=== PATIENT | male | born 1950 | race Hispanic/Latino ===

== ENCOUNTER → 2022-01-24 | Outpatient (CLI) | payer MEDICARE ==
[~2022-01-24] MED LIST: IOPAMIDOL 370 MG/ML 200 ML INFUS..BTL INJ ONE; SODIUM CHLORIDE 0.9% 500ML 500 ML ONE; SODIUM CHLORIDE 0.9% 50ML 50 ML ONE
[2022-01-24 14:34] LABS: CREATININE, SERUM 1.36 mg/dL (0.72-1.25)
== END ==
LOC: CT 13:44
PROVIDERS: ATTEND Internal Medicine Gastroenterology
DX: Z12.11 Encounter for screening for malignant neoplasm of colon (principal); R63.0 Anorexia; R63.4 Abnormal weight loss; Z80.0 Family history of malignant neoplasm of digestive organs
CPT/HCPCS: 36415; 74177; 82565; 84520; 96360; J7040; Q9967

== ENCOUNTER 2022-02-01 16:35 | Inpatient (IN) | payer MEDICARE ==
[~2022-02-01] VITALS: Ht 170.2 cm; Wt 67.6 kg
[2022-02-01 17:26] LABS: BASOPHILS % 0.3 % (0.0-1.0); EOSINOPHILS # (AUTO) 0.2 (0.0-0.4); EOSINOPHILS % 2.3 % (0.0-6.0); HEMATOCRIT 32.6 % (38.2-49.6); HEMOGLOBIN 9.9 g/dL (14.0-18.0); LYMPHOCYTES # (AUTO) 0.7 (1.0-3.2); LYMPHOCYTES % 10.1 % (18.0-39.1); MEAN CORPUSCULAR HEMOGLOBIN 25.3 pg (28-32); MEAN CORPUSCULAR HGB CONC 30.4 g/dL (31-35); MEAN CORPUSCULAR VOLUME 83.4 fL (81-99); MONOCYTES # (AUTO) 0.5 (0.2-0.8); MONOCYTES % 7.5 % (4.4-11.3); NEUTROPHILS # (AUTO) 5.2 (2.1-6.9); NEUTROPHILS % 79.2 % (38.7-80.0); PLATELET COUNT 189 x10e3/uL (140-360); RED BLOOD COUNT 3.91 x10e6/uL (4.3-5.7)
[2022-02-01 17:42] LABS: ALBUMIN 3.2 g/dL (3.5-5.0); ALBUMIN/GLOBULIN RATIO 0.7 (0.8-2.0); ANION GAP 13.1 mmol/L (8-16); CALCIUM 9.1 mg/dL (8.4-10.2); CREATININE, SERUM 1.29 mg/dL (0.72-1.25); POTASSIUM 4.1 mmol/L (3.5-5.1)
[2022-02-01] MEDS ORDERED: SODIUM CHLORIDE 0.9% 250ML 250 ML ONE (18:23)
[2022-02-01] MEDS ORDERED: IOPAMIDOL 370 MG/ML 200 ML INFUS..BTL INJ ONE (18:23)
[2022-02-01 18:40] LABS: CLARITY,URINE TURBID (CLEAR); COLOR,URINE RED (YELLOW); KETONES,URINE 2+ (NEGATIVE); LEUKOCYTE ESTERASE ,URINE LARGE (NEGATIVE); NITRITE,URINE POSITIVE (NEGATIVE); PROTEIN,URINE DIPSTICK >=300 (NEGATIVE); URINE UROBILINOGEN >=8 mg/dL (0.2 - 1)
[2022-02-01] MEDS ORDERED: Morphine 4mg Syringe 4 MG/ML INJ IV PRN (18:45)
[2022-02-01] MEDS ORDERED: ONDANSETRON HCL INJ 2MG/ML 2ML 2 MG/ML VIAL IV PRN (18:45)
[2022-02-01 18:50] LABS: BACTERIA,URINE MODERATE /HPF; RBC,URINE >50 /HPF (0-5)
[2022-02-01] MEDS: SODIUM CHLORIDE 0.9% 1000ML 1,000 ML IV SCH (20:52)
[2022-02-01 23:15] VITALS: BP 120/81
[2022-02-01] MEDS ORDERED: FINASTERIDE5 MG PO (23:39)
[2022-02-01] MEDS ORDERED: FLOMAX0.4 MG PO (23:39)
[2022-02-01] MEDS ORDERED: ATORVASTATIN CA20 MG PO ×2 (23:39)
[2022-02-01] MEDS ORDERED: NEXIUM40 MG PO (23:39)
[2022-02-01] MEDS ORDERED: ROPINIROLE HCL1 MG PO (23:39)
[2022-02-01] MEDS ORDERED: ARICEPT10 MG PO (23:39)
[2022-02-01 23:49] VITALS: BP 120/81
[2022-02-02] VITALS (7 sets, daily range): BP systolic 99–105; BP diastolic 62–70
[2022-02-02] MEDS ORDERED: POLYETHYLENE GLYCOL 3350 17 GM PACK PO PRN (00:30)
[2022-02-02] MEDS ORDERED: ACETAMINOPHEN 325 MG TAB PO PRN (00:30)
[2022-02-02] MEDS ORDERED: TEMAZEPAM 7.5 MG CAP PO PRN (00:30)
[2022-02-02] MEDS ORDERED: HYDRALAZINE HCL 20 MG/ML VIAL IV PRN (00:30)
[2022-02-02] MEDS: SODIUM CHLORIDE 0.9% 1000ML 1,000 ML IV SCH ×4 (05:15→22:01)
[2022-02-02 05:28] LABS: BASOPHILS % 0.8 % (0.0-1.0); EOSINOPHILS # (AUTO) 0.2 (0.0-0.4); EOSINOPHILS % 3.4 % (0.0-6.0); HEMATOCRIT 25.7 % (38.2-49.6); HEMOGLOBIN 8.1 g/dL (14.0-18.0); LYMPHOCYTES # (AUTO) 0.8 (1.0-3.2); LYMPHOCYTES % 15.6 % (18.0-39.1); MEAN CORPUSCULAR HEMOGLOBIN 25.6 pg (28-32); MEAN CORPUSCULAR HGB CONC 31.5 g/dL (31-35); MEAN CORPUSCULAR VOLUME 81.3 fL (81-99); MONOCYTES # (AUTO) 0.5 (0.2-0.8); MONOCYTES % 10.3 % (4.4-11.3); NEUTROPHILS # (AUTO) 3.5 (2.1-6.9); NEUTROPHILS % 69.5 % (38.7-80.0); PLATELET COUNT 158 x10e3/uL (140-360); RED BLOOD COUNT 3.16 x10e6/uL (4.3-5.7); RED CELL DISTRIBUTION WIDTH 15.9 % (11.7-14.4)
[2022-02-02 06:14] LABS: ALBUMIN 2.4 g/dL (3.5-5.0); ALBUMIN/GLOBULIN RATIO 0.7 (0.8-2.0); ANION GAP 9.9 mmol/L (8-16); CALCIUM 8.1 mg/dL (8.4-10.2); CHOL/HDL RATIO 2.8 (3.9-4.7); CREATININE, SERUM 1.08 mg/dL (0.72-1.25); MAGNESIUM 2.1 MG/DL (1.3-2.1); PHOSPHORUS 3.4 MG/DL (2.3-4.7); POTASSIUM 3.9 mmol/L (3.5-5.1)
[2022-02-02 06:37] LABS: THYROID STIMULATING HORMONE 4.831 uIU/mL (0.350-4.940)
[2022-02-02] MEDS ORDERED: DOCUSATE SODIUM 100 MG CAP PO SCH (09:00)
[2022-02-02] MEDS: FAMOTIDINE 20 MG TAB PO SCH ×2 (09:06→16:11)
[2022-02-02] MEDS ORDERED: DOCUSATE SODIUM 100 MG CAP PO PRN (13:15)
[2022-02-02] MEDS: CEFTRIAXONE 1 GM in SODIUM CHLORIDE 0.9% 50ML 50 ML IV SCH (15:25)
[2022-02-02 19:53] LABS: ANION GAP 9.4 mmol/L (8-16); CALCIUM 7.8 mg/dL (8.4-10.2); CREATININE, SERUM 1.02 mg/dL (0.72-1.25); POTASSIUM 4.4 mmol/L (3.5-5.1)
[2022-02-02] MEDS: ROPINIROLE HCL 1 MG TAB PO SCH (21:30)
[2022-02-02] MEDS: DONEPEZIL HCL 5 MG TAB PO SCH (21:30)
[2022-02-03] VITALS (8 sets, daily range): BP systolic 98–116; BP diastolic 59–74
[2022-02-03 05:54] LABS: BASOPHILS % 0.6 % (0.0-1.0); EOSINOPHILS # (AUTO) 0.2 (0.0-0.4); EOSINOPHILS % 3.2 % (0.0-6.0); HEMOGLOBIN 8.2 g/dL (14.0-18.0); LYMPHOCYTES # (AUTO) 0.9 (1.0-3.2); LYMPHOCYTES % 14.8 % (18.0-39.1); MEAN CORPUSCULAR HEMOGLOBIN 25.9 pg (28-32); MEAN CORPUSCULAR HGB CONC 31.5 g/dL (31-35); MONOCYTES # (AUTO) 0.6 (0.2-0.8); MONOCYTES % 9.3 % (4.4-11.3); NEUTROPHILS # (AUTO) 4.4 (2.1-6.9); NEUTROPHILS % 71.6 % (38.7-80.0); PLATELET COUNT 144 x10e3/uL (140-360); RED BLOOD COUNT 3.17 x10e6/uL (4.3-5.7)
[2022-02-03 06:21] LABS: ALBUMIN 2.4 g/dL (3.5-5.0); ALBUMIN/GLOBULIN RATIO 0.7 (0.8-2.0); ANION GAP 8.2 mmol/L (8-16); CALCIUM 7.9 mg/dL (8.4-10.2); CREATININE, SERUM 0.98 mg/dL (0.72-1.25); POTASSIUM 4.2 mmol/L (3.5-5.1)
[2022-02-03] MEDS ORDERED: TAMSULOSIN HCL 0.4 MG CAP PO SCH (09:00)
[2022-02-03] MEDS ORDERED: ATORVASTATIN 20 MG TAB PO SCH (09:00)
[2022-02-03] MEDS ORDERED: PANTOPRAZOLE SOD 40 MG TABEC PO SCH (09:00)
[2022-02-03] MEDS: CEFTRIAXONE 1 GM in SODIUM CHLORIDE 0.9% 50ML 50 ML IV SCH (10:01)
[2022-02-03] MEDS: FAMOTIDINE 20 MG TAB PO SCH ×2 (10:01→16:47)
[2022-02-03] MEDS: SODIUM CHLORIDE 0.9% 1000ML 1,000 ML IV SCH ×2 (10:01→18:28)
[2022-02-03] MEDS: ROPINIROLE HCL 1 MG TAB PO SCH (22:04)
[2022-02-03] MEDS: DONEPEZIL HCL 5 MG TAB PO SCH (22:05)
== END 2022-02-03 22:20 | disposition short-term general hospital (02) | DRG 687 ==
LOC: ER 17:11 → ERHOLD 18:32 → MED/SURG 23:02
PROVIDERS: ADMIT Internal Medicine; ATTEND Internal Medicine
DX: C64.1 Malignant neoplasm of right kidney, except renal pelvis (principal); N39.0 Urinary tract infection, site not specified; N17.9 Acute kidney failure, unspecified; I82.3 Embolism and thrombosis of renal vein; E44.1 Mild protein-calorie malnutrition; G30.9 Alzheimer's disease, unspecified; F02.80 Dementia in other diseases classified elsewhere, unspecified severity, without behavioral disturbance, psychotic disturbance, mood disturbance, and anxiety; E78.5 Hyperlipidemia, unspecified; R63.4 Abnormal weight loss; Z68.23 Body mass index [BMI] 23.0-23.9, adult; R31.9 Hematuria, unspecified; N40.1 Benign prostatic hyperplasia with lower urinary tract symptoms; N39.41 Urge incontinence; R31.0 Gross hematuria; N32.81 Overactive bladder; N21.0 Calculus in bladder; E83.51 Hypocalcemia; Z20.822 Contact with and (suspected) exposure to COVID-19; K76.0 Fatty (change of) liver, not elsewhere classified; E87.8 Other disorders of electrolyte and fluid balance, not elsewhere classified; K57.30 Diverticulosis of large intestine without perforation or abscess without bleeding; D50.0 Iron deficiency anemia secondary to blood loss (chronic); Z75.1 Person awaiting admission to adequate facility elsewhere
CPT/HCPCS: 36415; 74178; 80048; 80053; 80061; 81001; 83036; 83735; 84100; 84443; 85025; 87086; 87186; 94799; 99284; J0696; J2270; J2405; J7030; J7050; Q9967; U0002